=== PATIENT | female | born 1975 | race Caucasian/White ===

== ENCOUNTER 2024-03-07 06:12 | Inpatient (IN) | payer OTHER, BC, SELFPAY ==
[2024-03-01 13:45] VITALS: BMI 23.6
[2024-03-07] VITALS (14 sets, daily range): BP systolic 89–126; BP diastolic 52–80; PULSE 73–99; RESP 10–22; TEMP 36.3–37.1; O2SAT 91–100; BMI 23.6
--- NOTE | 2024-03-07 | DI.RAD.S_ITS ---
PROCEDURE: XR LUMBAR SPINE 2-3V INDICATIONS: TLIF L5-S1 TECHNIQUE: 2 views of the lumbar spine were acquired. COMPARISON: [facility] Outside Film, MR, MR LUMBAR SPINE WITHOUT CONTRAST, 06/19/2023, 15:57. [facility], CR, XR LUMBAR SPINE 2 OR 3 VIEWS, 05/30/2023, 10:49. FINDINGS: Intraoperative images demonstrating fixation at L5-S1 with intervertebral spacer. Hardware is intact without hardware fracture or periprosthetic lucency to suggest loosening. Alignment is stable. Moderate to severe foraminal narrowing is present at L5-S1. IMPRESSION: Posterior fusion L5-S1. Dictated by: Brianne Roland M.D. on 03/07/2024 at 19:22 Approved by: Brianne Roland M.D. on 03/07/2024 at 19:22
[2024-03-07] MEDS: LACTATED RINGERS 1,000 ML 42 ML IV ×2 (07:08→09:57)
[2024-03-07] MEDS: ACETAMINOPHEN 325 MG TABLET 975 MG PO (07:09)
--- NOTE | 2024-03-07 07:38 | PM.PREOP ---
Pre-operative Note Interval Note History & Physical reviewed/Exam performed by Physician: Yes Changes to H&P: No
[2024-03-07] MEDS: CEFAZOLIN 2 GM/100 ML PREMIX 100 ML IV ×3 (07:57→23:55)
--- NOTE | 2024-03-07 08:14 | SUR.OPER ---
Prone on spine table, head in foam head support, padded chest and pelvic supports, gel pad at knees, lower legs supported by pillows; nipples, genitalia and toes free of pressure, arms secured on foam padded arm boards at <90 degrees abduction. Tape over blanket at thigh secured to table.
[2024-03-07] MEDS: BUPIVACAINE 0.25% (PF) 30 ML, EPINEPHrine 0.15 MG INJ (08:57)
[2024-03-07] MEDS: BUPIVACAINE LIPOSOME 266 MG/20 ML VIAL INJ (09:28)
--- NOTE | 2024-03-07 10:12 | P.OP_ITS ---
Operative Date/Time/Diagnoses Date of procedure: 03/07/24 Time of procedure: 07:40 Pre-op diagnosis: 1. L5-S1 spondylolisthesis 2. L5-S1 bilateral foramen stenosis with radiculopathy Post-op diagnosis: same Procedure & Clinicians Procedure: 1. L5-S1 Postero-lateral and posterior interbody fusion 2. L5-S1 interbody cage placement. 3. L5-S1 decompressive laminectomy with bilateral facetecomies 4. L5-S1 Posterior non-segmental instrumentation 5. [place] of bone marrow from iliac crest 6. Utilization of microsurgical technique and operating microscope Same procedure as scheduled: Yes Indications: Patient has been having chronic back pain and worsening lumbar radiculopathy. Patient was found to have L5-S1 severe degenerative disc disease with bilateral foraminal stenosis and retrolisthesis correlating with her symptoms. Patient failed multiple conservative management with worsening pain weakness and numbness in her lower extremity. Patient has been having difficulty performing activity of daily living. After discussing risks benefits of treatment options, patient elected proceed with surgery. Surgeon: Stephy Lopez Office Technology Instructor: Diane Hickey Click Yes if Unassisted: No Anesthesia Type: General Operative Notes Closure Type: primary Specimen(s): none sent Prosthetic devices, grafts, tissues, transplants, or devices: Globus revolve screws, Rise cage Estimated Blood Loss (mL): 50 Blood products transfused: none Procedure in detail: Patient was seen in the preoperative area. Risks and benefits of the surgery was discussed with the patient. Informed consent was obtained from the patient and placed in the chart. Surgical site was marked. Patient was taken to the operative room. General anesthesia was administered. Prophylactic antibiotic was given to the patient less than 30 min before the incision was made. Patient was placed into a prone position on the [place] table. Patient's back was then prepped and draped in the sterile fashion. Time-out was performed at this time. Using AP and lateral C-arm imaging the interval between L5-S1 was identified and marked on patient's back. A 2 inch incision 2 in from midline was made on the right side first. The fascia was incised in line with skin incision. Globus MARS retractors was placed inside the incision and docked onto the L5 lamina. Using microsurgical technique and operating microscope, a L5 laminectomy and L5- S1 facetectomy was performed using a Kerr[place] rongeur. Patient was found have severe lateral recess and neural foramen stenosis which was fully decompressed after the laminectomy facetectomy. The laminectomy and facetectomy was performed in order to decompress patient's cauda equina as well as the nerve roots exiting at the L5-S1 level. More than 75% of the facets were removed during the process of decompression rendering L5-S1 level grossly unstable and required a fusion procedure at the same time. The disc space at L5-S1 was identified. And a total diskectomy was performed at L5-S1 level. The endplates were decorticated using a rasp and shaver. The total diskectomy and decortication was performed at L5-S1 level in order to to accomplish a L5-S1 fusion. The local bone from the laminectomy and facetectomy was saved for local bone grafting. After the total diskectomy and decortication was completed, Viacel bone graft material was combined with local bone that was harvested earlier. At this time, a separate skin is incision was made over the iliac crest. A Jamshidi needle was inserted into the iliac crest through a separate skin incision on the left. 5 cc of bone marrow aspiration was obtained through the separate skin incision using a Jamshidi needle from the iliac crest. The bone marrow aspiration was combined with local bone and the Viacel bone grafting material. The bone grafting material was placed into the L5-S1 interbody space along with a expandable cage. The cage was expanded to its maximum height using the torque limiting screwdriver. At this time a mirror image incision was made on the left side. The fascia was incised in line with the skin incision. Globus MARS retractor was inserted and docked onto the L5-S1 posterolateral gutter. Using the power drill, posterior- lateral decortication was performed at L5-S1 level until bleeding cortical bone was identified. The remaining bone grafting material was placed into the L5-S1 posterior lateral gutter he order to accomplish posterolateral fusion at the L5- S1 level. Using the double C-arm technique, pedicle screws were placed into the L5-S1 pedicles bilaterally. This was done by placing the Jamshidi needle into the pedicles, then placing the guidewires over the Jamshidi needle, and finally placing the cannulated screws over the guidewires bilaterally. After the pedicle screws were placed, 2 titanium rods was locked into the heads of the pedicle screws using locking caps and torque limiting screwdriver. After all the hardware was placed, and confirmed with AP and lateral C-arm imaging, the wound was then irrigated with sterile normal saline and packed with Ray-Adrian gauze for 3 min to accomplish hemostasis. After the gauze was removed the deep fascia was closed with #1 Vicryl suture. The subcutaneous layer was closed with 2-0 Vicryl. The skin was closed with skin tita. Patient tolerated the procedure well. There were no complications. The Operation could not have been safely performed without compromising the technical result or length of the procedure, without the assistance of a skilled surgical garment assembly supervisor. The surgical garment assembly supervisor was medically necessary for proper positioning, retraction and manipulation of instruments, proper exposure, surgical preparation, and manipulation of tissue. Neuro monitoring was utilized throughout the entire case. Patient has signal was stable throughout entire procedure. Complications: none Post-operative Condition: stable Disposition: PACU Plan for aftercare: Admit to inpatient hospital
[2024-03-07] MEDS: fentaNYL 100 MCG/2 ML INJ IV ×2 (10:28→10:40)
[2024-03-07] MEDS: HYDROMORPHONE 1 MG INJ IV ×4 (10:32→11:07)
[2024-03-07] MEDS: LORazepam 2 MG/ML INJ 0.25 MG IV ×2 (10:34→11:21)
[2024-03-07] MEDS: ONDANSETRON 4 MG/2 ML INJ IV (10:46)
[2024-03-07] MEDS: OXYCODONE IR 5 MG TABLET PO ×2 (11:04→11:35)
[2024-03-07] MEDS: hydrOXYzine 50 MG/ML INJ 25 MG IM (11:07)
[2024-03-07] MEDS: MEPERIDINE 50 MG/ML INJ 12.5 MG IV (11:32)
--- NOTE | 2024-03-07 12:06 | SUR.PHASEI ---
Handoff report given to QUENTIN Cantu. Pt transferred by QUENTIN Roach to 205. Pt in bed, side rails raised, on 2L NC. Taking sips of juice prior to transfer. Belongings sent with patient.
[2024-03-07] MEDS: LACTATED RINGERS 1,000 ML 125 ML IV ×3 (12:15→21:47)
--- NOTE | 2024-03-07 13:16 | PC.NURSE ---
Patient back from surgery around 12:10pm. She is alert and oriented x4. Patient had a lot of pain medications, and anxiety meds down in the pacu. Her VSS and rr are 12. She knows not to bend, twist, and lift. Her and friend are in the room visiting and she has LR at 125cc/hr infusing. Dressing to back is cdi, she is on 2L of oxygen and sats are 100%. We will try her on room air a bit later as she is groggy. Patient also has hx of bipolar and anxiety. She seems to be resting comfortably at this time. Will check on patient again soon.
--- NOTE | 2024-03-07 14:01 | PT-IP ANOTE ---
OT speaks with nsg who reports that pt is highly medicated and sleeping soundly and not appropriate for therapies at this time.
--- NOTE | 2024-03-07 14:02 | OT.IPNOTE ---
Chart reviewed and nursing consulted. Pt is medicated and sleeping soundly. Will hold at this time and continue to follow.
[2024-03-07] MEDS: HYDROMORPHONE 0.5 MG INJ IV ×4 (14:44→23:55)
[2024-03-07] MEDS: ACETAMINOPHEN 325 MG TABLET 650 MG PO (14:44)
[2024-03-07] MEDS: OXYCODONE IR 10 MG TABLET PO ×2 (16:12→21:47)
[2024-03-07] MEDS: TRAZODONE 50 MG TABLET 100 MG PO (20:19)
[2024-03-07] MEDS: DOCUSATE 100 MG CAPSULE PO (20:19)
[2024-03-07] MEDS: SENNOSIDES 8.6 MG TABLET 17.2 MG PO (20:20)
[2024-03-07] MEDS: ALPRAZolam 0.25 MG TABLET PO (20:20)
[2024-03-08 00:05] VITALS: BP 116/63; PULSE 97; RESP 18; TEMP 36.7; O2SAT 99
[2024-03-08] MEDS: HYDROMORPHONE 0.5 MG INJ IV ×3 (01:42→06:25)
[2024-03-08] MEDS: OXYCODONE IR 10 MG TABLET PO ×7 (02:05→23:51)
[2024-03-08 05:19] VITALS: BP 105/67; PULSE 97; RESP 18; TEMP 36.6; O2SAT 99
[2024-03-08] MEDS: BUTALB/APAP/CAFFEINE 50/325/40 TABLET 1 EACH PO (06:19)
[2024-03-08] MEDS: PANTOPRAZOLE DR 20 MG TABLET PO (06:29)
--- NOTE | 2024-03-08 07:44 | P.DS_ITS ---
History of Present Illness History of Present Illness Date Patient Seen: 03/08/24 Time Patient Seen: 07:44 Chief complaint: Back pain Narrative: Pain has been moderate to severe. Patient has been out of bed. Patient has her home to assist her. Otherwise without complaints. Discharge Providers Provider Date of admission: 03/07/24 06:12 Discharge Date: 03/08/24 Primary care physician: Alisha Colon MD Consults: 03/07/24 12:10 Consult to Occupational Therapy Evaluate & Treat Comment: Physician Instructions: Evaluate and treat Consult to Physical Therapy Evaluate & Treat Comment: Physician Instructions: Evaluate and Treat Discharge provider: Eliecer Mayberry PA-C Summary Hospital Course Discharge Diagnosis: 1. L5-S1 spondylolisthesis 2. L5-S1 bilateral foramen stenosis with radiculopathy Hospital Course: 1. L5-S1 Postero-lateral and posterior interbody fusion 2. L5-S1 interbody cage placement. 3. L5-S1 decompressive laminectomy with bilateral facetecomies 4. L5-S1 Posterior non-segmental instrumentation 5. [place] of bone marrow from iliac crest 6. Utilization of microsurgical technique and operating microscope Same procedure as scheduled: Yes Indications: Patient has been having chronic back pain and worsening lumbar radiculopathy. Patient was found to have L5-S1 severe degenerative disc disease with bilateral foraminal stenosis and retrolisthesis correlating with her symptoms. Patient failed multiple conservative management with worsening pain weakness and numbness in her lower extremity. Patient has been having difficulty performing activity of daily living. After discussing risks benefits of treatment options, patient elected proceed with surgery. Surgeon: Stephy Lopez Experimental Welder: Diane Hickey Click Yes if Unassisted: No Anesthesia Type: General Operative Notes Closure Type: primary Specimen(s): none sent Prosthetic devices, grafts, tissues, transplants, or devices: Globus revolve screws, Rise cage Estimated Blood Loss (mL): 50 Blood products transfused: none Patient admitted to the hospital for the above-mentioned procedure. Patient consented to the same. Patient underwent L5-S1 fusion March 07, 2024. Patient back in her room recovering well as a stable condition. Patient will mobilize with physical therapy this morning. She has been out of bed walking in her room. Multimodal pain management. Limit bending, twisting, lifting. Follow up outpatient Orthopedics in 2 weeks. Discharge home today after physical therapy if safe for home environment. Exam Vital Signs (past 8 hours): - 03/08/24 00:05 03/08/24 05:19 Temperature 98.1 F 97.8 F Pulse Rate 97 H 97 H Respiratory Rate 18 18 Blood Pressure 116/63 105/67 Pulse Oximetry 99 99 Oxygen Flow Rate 0 0 Oxygen Delivery Method Nasal Cannula Oxygen Flow Rate 0 Narrative Exam Narrative: 48-year-old female sitting at edge of bed in no apparent distress. Dressing is clean, dry and intact. Neurovascular status is intact bilateral lower extremities. Const General: cooperative and comfortable Nutritional Appearance: average body habitus Orientation: alert Resp Effort & Inspection: normal respiratory effort and able to speak in complete sentences PFSH Medical History History of COVID-19 (01/2022) Anxiety GERD (gastroesophageal reflux disease) HLD (hyperlipidemia) Hx of migraines Spondylolisthesis Foraminal stenosis of lumbosacral region Surgical History History of colonoscopy [place] teeth removed Hx of dilation and curettage (1995) Social History household members: spouse Smoking Status: Former smoker alcohol intake: current Discharge Assessment & Plan Assessment and Plan Assessment: Progressing as expected Plan of Treatment: Multimodal pain management Limit bending, twisting, lifting Follow up outpatient Orthopedics in 2 weeks Discharge home today after physical therapy if safe for home environment Discharge Plan Discharge Plan Patient Disposition: Home Discharge orders & Medications Prescriptions: New acetaminophen 325 mg Tablet 650 mg PO Q6H PRN (Reason: Fever/Mild Pain (1-3)) Qty: 60 0RF docusate sodium 100 mg Capsule 100 mg PO BID Qty: 10 0RF oxycodone 5 mg Tablet 5 mg PO Q3H PRN (Reason: Pain, Moderate (4-6)) Qty: 40 0RF Continued trazodone 50 mg Tablet 150 - 200 mg PO BEDTIME alprazolam 0.25 mg Tablet 0.25 mg PO BID PRN (Reason: Anxiety) baclofen 10 mg Tablet 10 mg PO Q8H PRN (Reason: Muscle Spasm) omeprazole 20 mg Capsule,Delayed Release(Dr/Ec) 20 mg PO DAILY ondansetron 4 mg Tablet,Disintegrating 4 mg PO Q8H PRN (Reason: Nausea) Femring 0.1 mg/24 hr Ring 1 vag ring VAGINAL [id number] rosuvastatin 10 mg Tablet 10 mg PO DAILY [id number] [Fioricet] 50-300-40 mg Capsule 1 - 2 cap PO DAILY PRN (Reason: Migraine Headache) Nurtec ODT 75 mg Tablet,Disintegrating 75 mg PO Q OTHER DAY PRN (Reason: Migraine Headache) Ozempic 1 mg/dose (4 mg/3 mL) Pen Injector 1 mg SUBCUT QWEEK Patient Comments: Every Thursday alprazolam 0.25 mg tablet 0.25 mg PO BID Follow up/Referrals: Stephy Lopez MD [Physician] - 03/24/24 2:00 pm (Follow up w/ Diane Hickey PA-C, at [facility] office in [place]. This is a change from your original appointment) Alisha Colon MD [Primary Care Provider] - Diet/Activity/Treatments Diet: Diet as Tolerated Activity: No deep bending or twisting at the waist. No lifting more than 10 pounds. Skin/Wound/Dressing Care Report to your healthcare provider any signs of infection, such as:: chills, fever, night sweats, unusual drainage and unusual redness Dressing: May shower. Keep dressing as dry as possible. If dressing becomes wet or dirty, remove and replace with clean, dry gauze. No bathing or otherwise soaking incisions. Do not apply any creams, lotions, or ointments to incisions. Visit Report/Discharge Packet Instructions: DI for Prescription Opioid Use, DI for Transforaminal Lumbar Interbody Fusion Stand Alone Forms: Congestive Heart Failure, Patient Portal/API, Stroke Signs & Symptoms, Surgery Discharge Discharge Data Primary Care Provider: Alisha Colon Quality VTE Deep Vein Thrombosis/Pulmonary Embolism Present on Admission: No
[2024-03-08 08:00] VITALS: BP 111/72; PULSE 90; RESP 16; TEMP 36.2; O2SAT 99
[2024-03-08] MEDS: ATORVASTATIN 20 MG TABLET PO (08:15)
[2024-03-08] MEDS: ALPRAZolam 0.25 MG TABLET PO ×2 (08:16→20:05)
[2024-03-08] MEDS: DOCUSATE 100 MG CAPSULE PO ×2 (08:16→20:05)
--- NOTE | 2024-03-08 08:22 | CM.DANOTE ---
Initial DCP Assessment Visit Note Reviewed EMR and team rounds for status updates. Met with pt and her friend at bedside to introduce self and role. Pt was found to be sitting upright in bed, eating breakfast, expressing that her pain is well managed and has improved since yesterday. Pt lives independently in her own home with her spouse in [place]. Her spouse will return later this morning to transport her home after she has worked with therapies. Payor: [facility] Attending: Dr. Lopez Pt is a 48 year-old F post-op day 1 from her lumbar surgery. She has a hx of worsening tailbone/lumbar pain that radiates down her legs, numbness/tingling, and weakness. She has tried numerous conservative therapies including physical therapy, chiropractic, ice, heat, baclofen, accupuncture, and cyclobenzaprine without lasting benefit. Pt states that she does have a walker at home, has a plan for OP PT, and Ortho f/u visit. DCP will continue to follow and assist with any further assistance/resource needs prior to d/c. She denies any needs at this time. Discharge Planning/Care Management CM Discharge Assessment Start: 03/08/24 08:17 Freq: Status: Active Protocol: Document 03/08/24 08:17 DPL (Rec: 03/08/24 08:22 DPL [id number]) Discharge Planning Assessment Assigned Residential Lawn Specialist JOE Mcneal Advance Directives? No History Provided By Patient,Medical Record Has Patient been admitted in last 30 No days? Prior Living Arrangements House Household Members spouse Type of transporation used prior to Drives own vehicle admit Independent with ADL's Yes Is patient alert and oriented? Yes Caregiver for Another Yes: family DME Already Rented / Owned FWW / Walker Patient/Family Preference OP PT Therapy Barriers to Discharge No Discharge Plan Home Community Services Physical Therapy Transportation Arrangement Spouse Referrals Initiated None needed Whiteboard Updated in Patient Room with Yes name and ext. # of Residential Lawn Specialist Review Status In Process Please Provide Date Initial DC 03/08/24 Assessment Was Performed Pre-Anesthesia Assessment Start: 03/01/24 13:45 Freq: Status: Complete Protocol: Document 03/01/24 13:45 CAB (Rec: 03/01/24 14:34 CAB [id number]) Pre-Anesthesia Assessment Patient Information Reviewed Via Phone Assessment Assessment Completed With Patient Diagnostic Results BMP/CMP,CBC Comment Outside labs scanned-EKG done per pt, not available at time of assessment Primary Care Provider Alisha Colon Seen Specialist in Last 12 Months Yes Specialist Seen Orthopedist,Other Comment Neurology Primary Language Trin[place] Electronic Field Service Engineer Required No Height 167.64 cm Weight 66.224 kg Body Mass Index (BMI) 23.6 Hearing Ability Normal Visual Assist Glasses Dentition Type Teeth, Natural Present,Teeth, Missing Barriers to Learning None Hx Anesthesia Reactions Yes: I felt everything with my colonoscopy Hx Family Anesthesia Reaction No Hx Malignant Hyperthermia No Hx Blood Transfusions No Anesthesia Review Requested No Inspector Canned Food Reconditioning No alcohol intake current alcohol intake frequency holidays/special occasions only Smoking Status Former smoker how long ago did patient quit smoking Jun 2023 Substance Use Type does not use Musculoskeletal Symptoms Abnormal Gait,Back Pain, Radiating Pain into Limb History of Falling (Recent or History of No ) Patient is completely paralyzed or No completely immobile Mental Status Oriented to own ability Is patient on oxygen? No Does patient have WIN/SOB No Hx Sleep Apnea No Currently Taking a Beta Tory No Can You Climb a Flight of Stairs Without Yes SOB Hx Chest Pain No Hx SOB No Hx Syncope or Dizziness Yes: Dizziness, pt feels related to ears Anti-Coagulant Therapy No Has a Trust Administrative Assistant No Cardiac Testing No Hx Pacemaker/ICD No Pacemaker Rep Required? No Cardiac Clearance Received No Diet Type At Home Regular Dysphagia No Gastrointestinal Symptoms Nausea Bladder Pattern Incontinent, Stress Urinary Catheter Present No Hx Urinary Self Catheterization No Diabetes No: Has not be diagnosed w/DM or pre-diabetes Comment Pt states A1c high(does not remember #), put on semaglutide Patient No Lactating No Hx Drug Resistant Organism No Presence of External or Internal Medical No Devices Marital Status Lives With spouse Current Living Arrangements House Number of Floors (Floors) One Floor Support System Spouse Does the Patient Have Assistance After Yes Surgery Patient Discharge Plan Description Return Home Comment Pt advised overnight length of stay per surgeon Feels Safe in Current Environment Yes Been Physically Hurt or Threatened By a No Person in Current Environment Do you have thoughts of harming yourself None or others? Are you currently considering suicide? No Do you have a plan to hurt yourself or No Plan others? Do You Have Any Spiritual Beliefs That No May Affect Your HC Choices? Do You Have Any Cultural Practices That No May Affect Your HC Choices? Comment [place] Who Can We Speak to About Patient's Care Family, friends Identifying Code for Release of Patient Declines to issue Information Health Care Proxy/Next of Kin Zack () Health Care Proxy Emergency Contact Name Germania (daughter) Emergency Contact Advance Directives? No Power of Doughnut Glazier No PAC Instructions Assistance for 24 hours post- op,Durable medical equipment, Medications to take/avoid, Nasal antibiotic,No ETOH/ petroleum product on skin DOS, NPO,Post-op transportation,Pre -surgical wash,Sensory aids, Sturdy shoes/comfortable clothes,Do not bring valuables and remove jewelry
--- NOTE | 2024-03-08 10:00 | PT.IIE ---
Current Diagnoses Spondylolisthesis, lumbosacral region (03/07/24) Spinal stenosis, lumbosacral region (03/07/24) Surgery Performed Operation Date: 03/07/24 07:45 Actual Procedures p L5-S1 TLIF - Stephy Lopez MD Surgical History (Last Reviewed 03/08/24 @ 10:54 by Eliecer Mayberry PA-C) History of colonoscopy Hx of dilation and curettage (1995) [place] teeth removed Medical History (Last Reviewed 03/08/24 @ 10:54 by Eliecer Mayberry PA-C) Anxiety Foraminal stenosis of lumbosacral region GERD (gastroesophageal reflux disease) History of COVID-19 (01/2022) HLD (hyperlipidemia) Hx of migraines Spondylolisthesis Physical Therapy Inpatient Evaluation/Re-Eval M1 PT/OT-IP Prior Functional Status Start: 03/07/24 14:02 Freq: NEEDED Status: Active Protocol: Document 03/08/24 10:00 AB (Rec: 03/08/24 12:46 AB [id number]) Medical Review Prior Functional Status Medical History Reviewed Yes Communication able to make needs known Mobility and Gait pt stated that she was independent with all mobilities and ambulation without AD Social History Household Members spouse Living Arrangements House Number of Floors (Floors) One Floor Number of Stairs To Enter/Railing? ramp to enter Home Environment Standard Height Toilet,Walk in Shower Home Equipment Front Wheel Walker,Raised Toilet Seat w/Armrests,Shower Seat with Backrest,Hand Held Shower Additional Social History Comment pt stated that her mother- in- law will be assisting her at home M2 PT-IP Current Condition Start: 03/07/24 14:02 Freq: NEEDED Status: Active Protocol: Document 03/08/24 10:00 AB (Rec: 03/08/24 12:46 AB [id number]) Physical Therapy Current Condition Current Condition Evaluation Date 03/08/24 Treatment Diagnosis s/p L4-S1 TLIF; difficulty in walking Onset Date 03/07/24 M3 PT-IP Subjective Start: 03/07/24 14:02 Freq: NEEDED Status: Active Protocol: Document 03/08/24 10:00 AB (Rec: 03/08/24 12:46 AB [id number]) Subjective Physical Therapy Visit Type Type Initial Evaluation Visit Start Time 10:00 Visit Stop Time 10:30 Number of SEAMER Visits 0 Physical Therapy Visit Comments Patient Comments agreeable to do PT Therapy Pain Assessment Pain When Pain Assessed At Rest Pain Present Pain Present Pain Reported Location back Intensity 7 Scale Used increases with mobility Pain Behaviors Crying,Guarding,Wincing Pain Management Techniques Apply Cold,Distraction, Modification of Treatment,Re- positioning,Timing of Activity with Medications M4 PT-IP Mobility and Gait Start: 03/07/24 14:02 Freq: NEEDED Status: Active Protocol: Document 03/08/24 10:00 AB (Rec: 03/08/24 12:46 AB [id number]) PT-Bed Mobility Assessment Rolling Type of Rolling Log Rolling Level of Assist Minimal Assistance Supine to Sit Supine to Sit Moderate Assistance Sit to Supine Sit to Supine Minimal Assistance PT-Transfer Assessment Sit to and From Stand Sit to and from Stand Moderate Assistance,1 Person Assistance,Use of Upper Extremities Equipment Transfer Assistive Device Gait Belt,Front Wheeled Walker Orthotic/Prosthetic Devices or Brace: No Transfers Transfer Destination Chair Transfer Technique ambulated Transfer Ability Level of Assist Moderate Assistance,1 Person Assistance,Use of Upper Extremities Comments Mobility Comments pt supine in bed and agreeable to do PT. pt's friend in room with pt. obtained PLOF and home set up. post-op folder provided and reviewed contents . educated pt regarding back precautions and log roll bed mobility. BP in supine: 111/ 68. pt completed log roll supine to sit mod A and max cues. c/ o increase back pain. pt is crying due to pain. pt rested seated. agreed to continue PT. completed sit to stand mod A and cues and ambulated using FWW ~15 ft mod A and cues. pt sat on the chair. agreed to sit on the chair. positioned pt on the chair. call light and table placed within reach. caregiver training set up this afternoon at ~ 2pm Gait Assessment Gait Gait Assistance Required: Moderate Assistance Distance (Feet) 15 Able to Maintain Weight Bearing Status Yes During Gait Assistive Devices Assistive Device Gait Belt,Front Wheeled Walker Orthotic/Prosthetic Devices or Brace: No Gait Deviations General Gait Pattern Decreased Stride Length, Decreased Feet Clearance Factors Limiting Gait Function Factors Limiting Gait Function Decreased Activity Tolerance, Decreased Strength,Limited Range of Motion,Pain,Poor Balance,Poor Safety Awareness PT-Balance Assessment Sitting Balance and Reactions Static Sitting Balance Ability Normal Dynamic Sitting Balance Ability Good Standing Balance and Reactions Static Standing Balance Ability Fair Dynamic Standing Balance Ability Fair Device Used FWW M5 PT-IP Objective Assessments Start: 03/07/24 14:02 Freq: NEEDED Status: Active Protocol: Document 03/08/24 10:00 AB (Rec: 03/08/24 12:46 AB [id number]) Orientation Orientation/Cognition Level of Alertness Alert Orientation Name,Place,Situation Language Function Ability No Deficits Noted Safety Awareness Understands Safety Issues Memory Description No Deficits Noted Gross Range of Motion Lower Extremity ROM Assessment Within Functional Limits Strength Lower Extremity Strength Hip 4-/5 Knee 4-/5 Coordination Assessment Gross Coordination Gross Coordination WNL Sensation Assessment Sensation Gross Sensation WNL Muscle Tone Muscle Tone WNL Yes M6 PT-IP Treatment Start: 03/07/24 14:02 Freq: NEEDED Status: Active Protocol: Document 03/08/24 10:00 AB (Rec: 03/08/24 12:46 AB [id number]) Physical Therapy Treatment Education Education Provided Precautions,Weight Bearing Status,Post-Op Packet,Safety M7 PT-IP Assessment and Plan Start: 03/07/24 14:02 Freq: NEEDED Status: Active Protocol: Document 03/08/24 10:00 AB (Rec: 03/08/24 12:46 AB [id number]) PT Summary Assessment and Plan Potential Rehabilitation Potential Fair Status of Condition at Evaluation Evolving Summary Impairments Pain,ROM,Strength,Balance, Coordination,Sensation,Tone, Cognition,Bed Mobility, Transfers,Gait,Activity Tolerance Assessment Summary pt is a 48 y/o F s/p L5S1 TLIF POD 1. pt requiring mod A for mobility at this time using FWW. pt c/o increase back pain with mobility affecting functional independence at this time. caregiver training set up at ~ 2pm this afternoon. will continue to assess progress. Goals Bed Mobility Goal Independent Transfer Goal Independent,Front Wheeled Walker Gait Goal Independent,Front Wheel Walker Gait Distance 200 Days to Meet Goals 10 Frequency of Treatment Frequency Of Treatment Twice a Day Treatment Plan Physical Therapy Treatment Plan Bed Mobility Training,Transfer Training,Gait Training, Therapeutic Exercise,Balance Retraining,Post Op Education, Discharge Planning,Hot or Cold Pack,Neuromuscular Re-ed, Coordination Retraining,Manual Therapy Precautions Lumbar Precautions Log Roll,No Twisting,Limit Bending,Lifting Restriction of 10 lbs,Gait Belt above Incisional Area Recommendations To Nursing Amount of Assist Needed 1 Person Assist Discharge Recommendations PT Discharge Recommendations Home with Assistance,Home Health Transportation Needs at Discharge Private Vehicle
--- NOTE | 2024-03-08 11:20 | OT.IP.EVAL ---
Current Diagnoses Spondylolisthesis, lumbosacral region (03/07/24) Spinal stenosis, lumbosacral region (03/07/24) Surgery Performed Operation Date: 03/07/24 07:45 Actual Procedures p L5-S1 TLIF - Stephy Lopez MD Past Medical History (Last Reviewed 03/08/24 @ 10:54 by Eliecer Mayberry PA-C) Anxiety Foraminal stenosis of lumbosacral region GERD (gastroesophageal reflux disease) History of COVID-19 (01/2022) HLD (hyperlipidemia) Hx of migraines Spondylolisthesis Surgical History (Last Reviewed 03/08/24 @ 10:54 by Eliecer Mayberry PA-C) History of colonoscopy Hx of dilation and curettage (1995) [place] teeth removed Occupational Therapy Inpatient Evaluation/Re-Eval M1 PT/OT-IP Prior Functional Status Start: 03/07/24 14:02 Freq: NEEDED Status: Active Protocol: Document 03/08/24 13:14 [facility] (Rec: 03/08/24 13:31 [facility] [id number]) Medical Review Prior Functional Status Medical History Reviewed Yes Communication able to make needs known Mobility and Gait pt stated that she was independent with all mobilities and ambulation without AD Activities of Daily Living and IADL's Independent Social History Household Members spouse Living Arrangements House Number of Floors (Floors) One Floor Number of Stairs To Enter/Railing? ramp to enter Home Environment Standard Height Toilet,Walk in Shower Home Equipment Front Wheel Walker,Raised Toilet Seat w/Armrests,Shower Seat with Backrest,Hand Held Shower Additional Social History Comment pt stated that her mother- in- law will be assisting her at home M2 OT-IP Current Condition Start: 03/08/24 13:14 Freq: Status: Active Protocol: Document 03/08/24 13:14 [facility] (Rec: 03/08/24 13:31 [facility] [id number]) Occupational Therapy Current Condition Current Condition Evaluation Date 03/08/24 Treatment Diagnosis S/P L5-S1 TLIF Diagnosis Onset Date 03/07/24 Post Operative Precautions Lumbar Precautions Log Roll,No Twisting,Limit Bending,Lifting Restriction of 10 lbs,Gait Belt above Incisional Area M3 OT- IP Subjective and Pain Start: 03/08/24 13:14 Freq: Status: Active Protocol: Document 03/08/24 13:14 [facility] (Rec: 03/08/24 13:31 [facility] [id number]) OT- Subjective Occupational Therapy Visit Type Type Initial Evaluation Visit Start Time 10:55 Visit Stop Time 11:20 Occupational Therapy Visit Comments Patient Comments Pt agreed to get up to use the bathroom and do caregiver training with her . Patient/Caregiver Goals To go home. OT Pain Assessment Pain When Pain Assessed At Rest Pain Present Pain Present Pain Reported Location back Intensity 8 Scale Used Numeric (0 - 10) M4 OT- IP ADL's Start: 03/08/24 13:14 Freq: Status: Active Protocol: Document 03/08/24 13:14 [facility] (Rec: 03/08/24 13:31 [facility] [id number]) OT [id number] General Evaluation Self-Feeding Ability Independent OT ADL-Grooming General Evaluation Grooming Ability Independent Comments OT Grooming Comments Able to do while standing with FWW. OT ADL-Oral Care General Eval Oral Care Ability Independent Comments Oral Care Comments VC tp hinge at her hips or just spit into a cup to best follow her back precautions. OT ADL-Dressing Comments OT Dressing Comments Pt's to assist. Pt has a political geographer and talked about other LB dressing equipment. OT ADL-Toileting General Evaluation Toileting Ability Standby Assistance Comments OT Toileting Comments Pt has a toilet paper aid at home to assist her. Pt out the FWW over the toilet and then turning around to us the toilet. Suggested best to use the FWW at all times and use of RTS with handles or get a BSC for safety to decrease risk of twisting. Pt states agrees will wear pads at night. OT ADL-Bathing Comments OT Bathing Comments Educated pt's or covering the dressing to prevent it from getting wet while showering. M5 OT- IP IADL's Start: 03/08/24 13:14 Freq: Status: Active Protocol: Document 03/08/24 13:14 [facility] (Rec: 03/08/24 13:31 [facility] [id number]) OT-Instrumental Activities of Daily Living Home Safety Awareness Awareness of Need for Assistance at Home Good Awareness Ability to Problem Solve Emergency Able to Problem Solve Situations Home Safety Comments Pt's plans on staying home to assist her. M6 OT- IP Functional Cognition Start: 03/08/24 13:14 Freq: Status: Active Protocol: Document 03/08/24 13:14 [facility] (Rec: 03/08/24 13:31 [facility] [id number]) Cognitive Factors Limiting Selfcare Function Cognitive Ability Level of Alertness Alert Patient Orientation Name,Age,Birthday,Month,Date, Year,Day of Week,Place, Situation Attention Span Ability Capable of Focused Attention, Capable of Sustained Attention Ability to Follow Commands Able to Follow One Step Commands Safety Awareness Decreased Ability to Apply Precautions Cognitive Comments Cognitive Assessment Comments Pt very tearful due to her pain and nursing notified. Pt able to follow commands for ADl and mobility needs and needing reminders to incorporate her back precautions. OT- Vision and Hearing OT- Hearing Assessment OT- Hearing Assessment WFL OT- Vision Assessment Vision Assessment Comments Pt wears glasses. M7 OT- IP Mobility and Balance Start: 03/08/24 13:14 Freq: Status: Active Protocol: Document 03/08/24 13:14 [facility] (Rec: 03/08/24 13:31 [facility] [id number]) OT- Bed Mobility Assessment Supine to Sit Supine to Sit Assist Contact Guard Assistance, Bedrails Sit to Supine Sit to Supine Assist Contact Guard Assistance, Bedrails OT-Transfer Assessment Sit to and From Stand Sit to and from Stand Minimal Assistance Transfers Transfer Ability Standby Assistance,Contact Guard Assistance Technique Transfer Destination Bed,Chair,Toilet Devices Transfer Assistive Devices Gait Belt,Front Wheeled Walker Comments Mobility Comments VC to push up from the recliner versus FWW. Pt needing CHUNG to stand from lower surfaces. Pt's able to assist pt to and from the bathroom. Showed pt and use of fww on the side to use as a grab bar so pt better able to follow her back precautions while trying to get back to bed. Pt also may want to get a bed rail. OT- Balance Assessment Sitting Balance and Reactions Static Sitting Balance Ability Good Dynamic Sitting Balance Ability Good Standing Balance and Reactions Static Standing Balance Ability Fair Dynamic Standing Balance Ability Fair M8 OT- IP Objective Assessments Start: 03/08/24 13:14 Freq: Status: Active Protocol: Document 03/08/24 13:14 [facility] (Rec: 03/08/24 13:31 [facility] [id number]) OT Gross Range of Motion Upper Extremity Range of Motion Assessment Within Functional Limits OT Strength Comments Strength Comments WFL for needs. M9 OT- IP Assessment and Plan Start: 03/08/24 13:14 Freq: Status: Active Protocol: Document 03/08/24 13:14 [facility] (Rec: 03/08/24 13:31 [facility] [id number]) OT Summary Assessment and Plan Potential Rehabilitation Potential Excellent Analytic Complexity at Evaluation Low Summary OT Impairments Pain,Strength,Balance, Functional Mobility,Dressing, Toileting,Bathing,Toilet Transfers,Shower Transfers Progress Towards Goals Progressing Toward Goals,Slow Progress due to Pain Assessment Summary Pt low complexity and main barriers is pain at this time. Otherwise pt has a supportive to be able to assist her at home when medically stable. Pt would benefit from a BSC and bedrail. Goals Self-Feeding Goal Independent Grooming Goal Independent Dressing Goal Minimal Assistance Toileting Goal Independent Bathing Goal Minimal Assistance Toilet Transfer Goal Independent Shower Transfer Goal Standby Assistance Days to Meet Goals 5 Frequency of Treatment Other frequency 5x/week Treatment Plan OT Treatment Plan ADL Training,Functional Mobility,Patient/Family Education,Discharge Planning Discharge Recommendations OT Discharge Recommendations Home with Assistance Home Equipment Needs BSC, bed rail Transportation Needs at Discharge Private Vehicle
[2024-03-08] MEDS: BACLOFEN 10 MG TABLET PO ×2 (11:21→20:05)
--- NOTE | 2024-03-08 11:37 | PC.NURSE ---
Addendum entered by Belinda iWlliamson R.N. 03/08/24 14:18: Patient is having a hard time with pain management, she is getting oxycodone every 3 hours and is tearful. She is working with physical therapy now and doing primary care nurse training. Will assess pain level and management when she is done. Original Note: Patient has a discharge order to go home today. She is having pain and anxiety. Given 10mg of po oxycodone this morning, and just given baclofen 10mg to help relax patients muscles. She is teary eyed and visiting with her . Will check on patient again soon to see how she is doing. She has a back dressing to lower back that is cdi, this will be changed prior to discharge.
--- NOTE | 2024-03-08 17:04 | PT-IP ANOTE ---
checked on pt and pt in room with spouse. pt refused PT and stated that she has 9/10 pain and does not think it is ok for her to move with high pain. agreed to see PT tomorrow and possible caregiver training with spouse coming in at ~ 9 am tomorrow. will f/u.
[2024-03-08 20:00] VITALS: BP 106/53; PULSE 98; RESP 18; TEMP 37; O2SAT 97
[2024-03-08] MEDS: SENNOSIDES 8.6 MG TABLET 17.2 MG PO (20:05)
[2024-03-08] MEDS: TRAZODONE 50 MG TABLET 100 MG PO (20:05)
[2024-03-08] MEDS: ACETAMINOPHEN 325 MG TABLET 650 MG PO (20:05)
[2024-03-09] MEDS: ACETAMINOPHEN 325 MG TABLET 650 MG PO ×2 (02:56→12:10)
[2024-03-09] MEDS: OXYCODONE IR 10 MG TABLET PO ×2 (02:57→05:51)
[2024-03-09] MEDS: PANTOPRAZOLE DR 20 MG TABLET PO (05:51)
[2024-03-09] MEDS: BACLOFEN 10 MG TABLET PO (05:51)
[2024-03-09 08:00] VITALS: BP 121/81; PULSE 95; RESP 16; TEMP 37.6; O2SAT 96
[2024-03-09] MEDS: ONDANSETRON 4 MG ODT SL (08:09)
[2024-03-09] MEDS: ALPRAZolam 0.25 MG TABLET PO (08:09)
[2024-03-09] MEDS: MAGNESIUM HYDROXIDE 30 ML UDC PO (08:09)
[2024-03-09] MEDS: BUTALB/APAP/CAFFEINE 50/325/40 TABLET 1 EACH PO (08:09)
[2024-03-09] MEDS: polyethylene glycoL 3350 17 GM POWD.PACK PO (08:09)
[2024-03-09] MEDS: ATORVASTATIN 20 MG TABLET PO (08:09)
[2024-03-09] MEDS: DOCUSATE 100 MG CAPSULE PO (08:09)
--- NOTE | 2024-03-09 08:19 | P.PN_ITS ---
Subjective Subjective Date Patient Seen: 03/09/24 Time Patient Seen: 08:19 Interval history: Pt sitting up in bed, about to eat breakfast. C/o poor pain control despite baclofen 10mg and oxycodone 10mg, also c/o nausea. IV out. Has done some work w/ PT but not much d/t pain. C/o sharp, shooting pain in left buttock that runs down left leg. Exam Vital Signs (past 8 hours): - 03/09/24 08:00 Temperature 99.7 F H Pulse Rate 95 H Respiratory Rate 16 Blood Pressure 121/81 Pulse Oximetry 96 Oxygen Delivery Method Nasal Cannula Oxygen Flow Rate 0 Narrative Exam Narrative: 5/5 strength in hip flexors, quadriceps, hamstrings, PF, DF, EHL bilaterally, though DF is subjectively weaker on the left. Sensation to light touch intact throughout BLE, calves soft and compressible. Low back dressing placed intraoperatively is CDI. [facility] Medical History History of COVID-19 (01/2022) Anxiety GERD (gastroesophageal reflux disease) HLD (hyperlipidemia) Hx of migraines Spondylolisthesis Foraminal stenosis of lumbosacral region Surgical History History of colonoscopy [place] teeth removed Hx of dilation and curettage (1995) Social History household members: spouse Smoking Status: Former smoker alcohol intake: current Assessment & Plan Post-op Assessment and plan (1) S/P lumbar fusion: Assessment and Plan narrative: Poor pain control s/p lumbar fusion. We discussed what to expect and how to better manage pain and control nausea. Recommended decreasing oxycodone to 5mg max q 3hrs, while increasing baclofen dose and frequency. Will also start oral steroid taper to help with leg pain. Pt agreeable to trying this. We will plan on keeping her today to do more work w/ PT and to see if this medication change helps with pain and nausea. I advised her that if she is feeling better later today, she can let the nursing staff know and they can call one of us to discharge her. She should be discharged w/ a steroid taper if her leg pain is relieved with the current methylprednisolone order. Postoperative Procedures: Procedures Operation Date: 03/07/24 07:45 Actual Procedure Side Surgeon p L5-S1 TLIF Stephy Lopez MD Postoperative day: 2 Quality VTE Deep Vein Thrombosis/Pulmonary Embolism Present on Admission: No
[2024-03-09] MEDS: methylPREDNISolone 4 MG TABLET 24 MG PO (08:39)
--- NOTE | 2024-03-09 08:56 | PT.IPTN ---
Current Diagnoses Spondylolisthesis, lumbosacral region (03/07/24) Spinal stenosis, lumbosacral region (03/07/24) Arthrodesis status (03/07/24) Surgery Performed Operation Date: 03/07/24 07:45 Actual Procedures p L5-S1 TLIF - Stephy Lopez MD Physical Therapy Treatment Note M2 PT-IP Current Condition Start: 03/07/24 14:02 Freq: NEEDED Status: Active Protocol: Document 03/08/24 10:00 AB (Rec: 03/08/24 12:46 AB [id number]) Physical Therapy Current Condition Current Condition Evaluation Date 03/08/24 Treatment Diagnosis s/p L4-S1 TLIF; difficulty in walking Onset Date 03/07/24 M3 PT-IP Subjective Start: 03/07/24 14:02 Freq: NEEDED Status: Active Protocol: Document 03/09/24 09:20 TS (Rec: 03/09/24 09:32 TS [id number]) Subjective Physical Therapy Visit Type Type Treatment Note Visit Start Time 08:56 Visit Stop Time 09:16 Number of SKILL TRAINING PROGRAM COORDINATOR Visits 1 Physical Therapy Visit Comments Patient Comments Pt found resting in bed, reports pain is 6/10, has had some dizziness when getting up , she is agreeable to PT. Therapy Pain Assessment Pain When Pain Assessed At Rest Pain Present Pain Present Pain Reported Location back Intensity 6 Scale Used Numeric (0 - 10) Description Acute,Radiating,Sharp Pain Behaviors Wincing Pain Management Techniques Apply Cold,Distraction, Modification of Treatment,Re- positioning,Timing of Activity with Medications M4 PT-IP Mobility and Gait Start: 03/07/24 14:02 Freq: NEEDED Status: Active Protocol: Document 03/09/24 09:20 TS (Rec: 03/09/24 09:32 TS [id number]) PT-Bed Mobility Assessment Rolling Type of Rolling Log Rolling Level of Assist Standby Assistance Supine to Sit Supine to Sit Contact Guard Assistance Sit to Supine Sit to Supine Minimal Assistance PT-Transfer Assessment Sit to and From Stand Sit to and from Stand Standby Assistance Equipment Transfer Assistive Device Gait Belt,Front Wheeled Walker Orthotic/Prosthetic Devices or Brace: No Comments Mobility Comments Pt recalled 3/3 spinal precautions prior to mobility. Logroll to R side SBA, pt required cues for sequencing. Supine to sit CGA for uprighting trunk. STS with FWW SBA, pt is slow to stand. She ambulated ~100' SBA in hallway with slow step thru gait, she reports some burning in R hip. Sit to supine into bed Zen for LE's. Pt was left in bed, all needs met. Gait Assessment Gait Gait Assistance Required: Standby Assistance Distance (Feet) 100 Able to Maintain Weight Bearing Status Yes During Gait Assistive Devices Assistive Device Gait Belt,Front Wheeled Walker Orthotic/Prosthetic Devices or Brace: No Gait Deviations General Gait Pattern Decreased Stride Length, Decreased Feet Clearance Factors Limiting Gait Function Factors Limiting Gait Function Decreased Activity Tolerance, Decreased Strength,Limited Range of Motion,Pain,Poor Balance,Poor Safety Awareness Comments Gait Comments See mobility comments Stair Climbing Assessment Comments Stair Climbing Comments no stairs PT-Balance Assessment Sitting Balance and Reactions Static Sitting Balance Ability Good Dynamic Sitting Balance Ability Good Standing Balance and Reactions Static Standing Balance Ability Fair Dynamic Standing Balance Ability Fair Device Used FWW M5 PT-IP Objective Assessments Start: 03/07/24 14:02 Freq: NEEDED Status: Active Protocol: Document 03/08/24 10:00 AB (Rec: 03/08/24 12:46 AB [id number]) Orientation Orientation/Cognition Level of Alertness Alert Orientation Name,Place,Situation Language Function Ability No Deficits Noted Safety Awareness Understands Safety Issues Memory Description No Deficits Noted Gross Range of Motion Lower Extremity ROM Assessment Within Functional Limits Strength Lower Extremity Strength Hip 4-/5 Knee 4-/5 Coordination Assessment Gross Coordination Gross Coordination WNL Sensation Assessment Sensation Gross Sensation WNL Muscle Tone Muscle Tone WNL Yes M6 PT-IP Treatment Start: 03/07/24 14:02 Freq: NEEDED Status: Active Protocol: Document 03/09/24 09:20 TS (Rec: 03/09/24 09:32 [id number]) Physical Therapy Treatment Education Education Provided Precautions,Weight Bearing Status,Post-Op Packet,Safety M7 PT-IP Assessment and Plan Start: 03/07/24 14:02 Freq: NEEDED Status: Active Protocol: Document 03/09/24 09:20 TS (Rec: 03/09/24 09:32 [id number]) PT Summary Assessment and Plan Potential Rehabilitation Potential Fair Summary Impairments Pain,ROM,Strength,Balance, Coordination,Sensation,Tone, Cognition,Bed Mobility, Transfers,Gait,Activity Tolerance Progress Towards Goals Progressing Toward Goals Assessment Summary Mindi is making good progress with her mobility. She demonstrates good recall of her spinal precautions, she recalled 3/3. She performs bed mobility CGA/Zen with some cues for sequencing. She progressed her gait to ~100' SBA with FWW. She continues to have burning pain in her hips R>L. PT is recommending home with assist and outpatient PT. Goals Bed Mobility Goal Independent Transfer Goal Independent,Front Wheeled Walker Gait Goal Independent,Front Wheel Walker Gait Distance 200 Days to Meet Goals 10 Frequency of Treatment Frequency Of Treatment Twice a Day Treatment Plan Physical Therapy Treatment Plan Bed Mobility Training,Transfer Training,Gait Training, Therapeutic Exercise,Balance Retraining,Post Op Education, Discharge Planning,Hot or Cold Pack,Neuromuscular Re-ed, Coordination Retraining,Manual Therapy Precautions Lumbar Precautions Log Roll,No Twisting,Limit Bending,Lifting Restriction of 10 lbs,Gait Belt above Incisional Area Recommendations To Nursing Amount of Assist Needed 1 Person Assist Discharge Recommendations PT Discharge Recommendations Home with Assistance, Outpatient PT Transportation Needs at Discharge Private Vehicle
[2024-03-09] MEDS: OXYCODONE IR 5 MG TABLET PO ×3 (09:07→15:13)
--- NOTE | 2024-03-09 09:16 | PT.IPTN ---
Current Diagnoses Spondylolisthesis, lumbosacral region (03/07/24) Spinal stenosis, lumbosacral region (03/07/24) Arthrodesis status (03/07/24) Surgery Performed Operation Date: 03/07/24 07:45 Actual Procedures p L5-S1 TLIF - Stephy Lopez MD Physical Therapy Treatment Note M2 PT-IP Current Condition Start: 03/07/24 14:02 Freq: NEEDED Status: Active Protocol: Document 03/08/24 10:00 AB (Rec: 03/08/24 12:46 AB [id number]) Physical Therapy Current Condition Current Condition Evaluation Date 03/08/24 Treatment Diagnosis s/p L4-S1 TLIF; difficulty in walking Onset Date 03/07/24 M3 PT-IP Subjective Start: 03/07/24 14:02 Freq: NEEDED Status: Active Protocol: Document 03/09/24 09:20 TS (Rec: 03/09/24 09:32 TS [id number]) Subjective Physical Therapy Visit Type Type Treatment Note Visit Start Time 08:56 Visit Stop Time 09:16 Number of FINISHED CLOTH CHECKER Visits 1 Physical Therapy Visit Comments Patient Comments Pt found resting in bed, reports pain is 6/10, has had some dizziness when getting up , she is agreeable to PT. Therapy Pain Assessment Pain When Pain Assessed At Rest Pain Present Pain Present Pain Reported Location back Intensity 6 Scale Used Numeric (0 - 10) Description Acute,Radiating,Sharp Pain Behaviors Wincing Pain Management Techniques Apply Cold,Distraction, Modification of Treatment,Re- positioning,Timing of Activity with Medications M4 PT-IP Mobility and Gait Start: 03/07/24 14:02 Freq: NEEDED Status: Active Protocol: Document 03/09/24 09:20 TS (Rec: 03/09/24 09:32 TS [id number]) PT-Bed Mobility Assessment Rolling Type of Rolling Log Rolling Level of Assist Standby Assistance Supine to Sit Supine to Sit Contact Guard Assistance Sit to Supine Sit to Supine Minimal Assistance PT-Transfer Assessment Sit to and From Stand Sit to and from Stand Standby Assistance Equipment Transfer Assistive Device Gait Belt,Front Wheeled Walker Orthotic/Prosthetic Devices or Brace: No Comments Mobility Comments Pt recalled 3/3 spinal precautions prior to mobility. Logroll to R side SBA, pt required cues for sequencing. Supine to sit CGA for uprighting trunk. STS with FWW SBA, pt is slow to stand. She ambulated ~100' SBA in hallway with slow step thru gait, she reports some burning in R hip. Sit to supine into bed CGA. Pt was left in bed, all needs met. Gait Assessment Gait Gait Assistance Required: Standby Assistance Distance (Feet) 100 Able to Maintain Weight Bearing Status Yes During Gait Assistive Devices Assistive Device Gait Belt,Front Wheeled Walker Orthotic/Prosthetic Devices or Brace: No Gait Deviations General Gait Pattern Decreased Stride Length, Decreased Feet Clearance Factors Limiting Gait Function Factors Limiting Gait Function Decreased Activity Tolerance, Decreased Strength,Limited Range of Motion,Pain,Poor Balance,Poor Safety Awareness Comments Gait Comments See mobility comments Stair Climbing Assessment Comments Stair Climbing Comments no stairs PT-Balance Assessment Sitting Balance and Reactions Static Sitting Balance Ability Good Dynamic Sitting Balance Ability Good Standing Balance and Reactions Static Standing Balance Ability Fair Dynamic Standing Balance Ability Fair Device Used FWW M5 PT-IP Objective Assessments Start: 03/07/24 14:02 Freq: NEEDED Status: Active Protocol: Document 03/08/24 10:00 AB (Rec: 03/08/24 12:46 AB [id number]) Orientation Orientation/Cognition Level of Alertness Alert Orientation Name,Place,Situation Language Function Ability No Deficits Noted Safety Awareness Understands Safety Issues Memory Description No Deficits Noted Gross Range of Motion Lower Extremity ROM Assessment Within Functional Limits Strength Lower Extremity Strength Hip 4-/5 Knee 4-/5 Coordination Assessment Gross Coordination Gross Coordination WNL Sensation Assessment Sensation Gross Sensation WNL Muscle Tone Muscle Tone WNL Yes M6 PT-IP Treatment Start: 03/07/24 14:02 Freq: NEEDED Status: Active Protocol: Document 03/09/24 09:20 TS (Rec: 03/09/24 09:32 TS [id number]) Physical Therapy Treatment Education Education Provided Precautions,Weight Bearing Status,Post-Op Packet,Safety M7 PT-IP Assessment and Plan Start: 03/07/24 14:02 Freq: NEEDED Status: Active Protocol: Document 03/09/24 09:20 TS (Rec: 03/09/24 09:32 TS [id number]) PT Summary Assessment and Plan Potential Rehabilitation Potential Fair Summary Impairments Pain,ROM,Strength,Balance, Coordination,Sensation,Tone, Cognition,Bed Mobility, Transfers,Gait,Activity Tolerance Progress Towards Goals Progressing Toward Goals Assessment Summary Mindi is making good progress with her mobility. She demonstrates good recall of her spinal precautions, she recalled 3/3. She performs bed mobility CGA/Zen with some cues for sequencing. She progressed her gait to ~100' SBA with FWW. She continues to have burning pain in her hips R>L. Spouse was instructed in bed mobility, gait training and precautions. PT is recommending home with assist and outpatient PT. Goals Bed Mobility Goal Independent Transfer Goal Independent,Front Wheeled Walker Gait Goal Independent,Front Wheel Walker Gait Distance 200 Days to Meet Goals 10 Frequency of Treatment Frequency Of Treatment Twice a Day Treatment Plan Physical Therapy Treatment Plan Bed Mobility Training,Transfer Training,Gait Training, Therapeutic Exercise,Balance Retraining,Post Op Education, Discharge Planning,Hot or Cold Pack,Neuromuscular Re-ed, Coordination Retraining,Manual Therapy Precautions Lumbar Precautions Log Roll,No Twisting,Limit Bending,Lifting Restriction of 10 lbs,Gait Belt above Incisional Area Recommendations To Nursing Amount of Assist Needed 1 Person Assist Discharge Recommendations PT Discharge Recommendations Home with Assistance, Outpatient PT Transportation Needs at Discharge Private Vehicle
--- NOTE | 2024-03-09 09:16 | PT.IPTN ---
Current Diagnoses Spondylolisthesis, lumbosacral region (03/07/24) Spinal stenosis, lumbosacral region (03/07/24) Arthrodesis status (03/07/24) Surgery Performed Operation Date: 03/07/24 07:45 Actual Procedures p L5-S1 TLIF - Stephy Lopez MD Physical Therapy Treatment Note M2 PT-IP Current Condition Start: 03/07/24 14:02 Freq: NEEDED Status: Active Protocol: Document 03/08/24 10:00 AB (Rec: 03/08/24 12:46 AB [id number]) Physical Therapy Current Condition Current Condition Evaluation Date 03/08/24 Treatment Diagnosis s/p L4-S1 TLIF; difficulty in walking Onset Date 03/07/24 M3 PT-IP Subjective Start: 03/07/24 14:02 Freq: NEEDED Status: Active Protocol: Document 03/09/24 09:20 TS (Rec: 03/09/24 09:32 TS [id number]) Subjective Physical Therapy Visit Type Type Treatment Note Visit Start Time 08:56 Visit Stop Time 09:16 Number of SUPERVISOR HOUSECLEANER Visits 1 Physical Therapy Visit Comments Patient Comments Pt found resting in bed, reports pain is 6/10, has had some dizziness when getting up , she is agreeable to PT. Therapy Pain Assessment Pain When Pain Assessed At Rest Pain Present Pain Present Pain Reported Location back Intensity 6 Scale Used Numeric (0 - 10) Description Acute,Radiating,Sharp Pain Behaviors Wincing Pain Management Techniques Apply Cold,Distraction, Modification of Treatment,Re- positioning,Timing of Activity with Medications M4 PT-IP Mobility and Gait Start: 03/07/24 14:02 Freq: NEEDED Status: Active Protocol: Document 03/09/24 09:20 TS (Rec: 03/09/24 09:32 TS [id number]) PT-Bed Mobility Assessment Rolling Type of Rolling Log Rolling Level of Assist Standby Assistance Supine to Sit Supine to Sit Contact Guard Assistance Sit to Supine Sit to Supine Contact Guard Assistance PT-Transfer Assessment Sit to and From Stand Sit to and from Stand Standby Assistance Equipment Transfer Assistive Device Gait Belt,Front Wheeled Walker Orthotic/Prosthetic Devices or Brace: No Comments Mobility Comments Pt recalled 3/3 spinal precautions prior to mobility. Logroll to R side SBA, pt required cues for sequencing. Supine to sit CGA for uprighting trunk. STS with FWW SBA, pt is slow to stand. She ambulated ~100' SBA in hallway with slow step thru gait, she reports some burning in R hip. Sit to supine into bed CGA with cues for logroll. Pt was left in bed, all needs met. Gait Assessment Gait Gait Assistance Required: Standby Assistance Distance (Feet) 100 Able to Maintain Weight Bearing Status Yes During Gait Assistive Devices Assistive Device Gait Belt,Front Wheeled Walker Orthotic/Prosthetic Devices or Brace: No Gait Deviations General Gait Pattern Decreased Stride Length, Decreased Feet Clearance Factors Limiting Gait Function Factors Limiting Gait Function Decreased Activity Tolerance, Decreased Strength,Limited Range of Motion,Pain,Poor Balance,Poor Safety Awareness Comments Gait Comments See mobility comments Stair Climbing Assessment Comments Stair Climbing Comments no stairs PT-Balance Assessment Sitting Balance and Reactions Static Sitting Balance Ability Good Dynamic Sitting Balance Ability Good Standing Balance and Reactions Static Standing Balance Ability Fair Dynamic Standing Balance Ability Fair Device Used FWW M5 PT-IP Objective Assessments Start: 03/07/24 14:02 Freq: NEEDED Status: Active Protocol: Document 03/08/24 10:00 AB (Rec: 03/08/24 12:46 AB [id number]) Orientation Orientation/Cognition Level of Alertness Alert Orientation Name,Place,Situation Language Function Ability No Deficits Noted Safety Awareness Understands Safety Issues Memory Description No Deficits Noted Gross Range of Motion Lower Extremity ROM Assessment Within Functional Limits Strength Lower Extremity Strength Hip 4-/5 Knee 4-/5 Coordination Assessment Gross Coordination Gross Coordination WNL Sensation Assessment Sensation Gross Sensation WNL Muscle Tone Muscle Tone WNL Yes M6 PT-IP Treatment Start: 03/07/24 14:02 Freq: NEEDED Status: Active Protocol: Document 03/09/24 09:20 TS (Rec: 03/09/24 09:32 [id number]) Physical Therapy Treatment Education Education Provided Precautions,Weight Bearing Status,Post-Op Packet,Safety M7 PT-IP Assessment and Plan Start: 03/07/24 14:02 Freq: NEEDED Status: Active Protocol: Document 03/09/24 09:20 TS (Rec: 03/09/24 09:32 [id number]) PT Summary Assessment and Plan Potential Rehabilitation Potential Fair Summary Impairments Pain,ROM,Strength,Balance, Coordination,Sensation,Tone, Cognition,Bed Mobility, Transfers,Gait,Activity Tolerance Progress Towards Goals Progressing Toward Goals Assessment Summary Mindi is making good progress with her mobility. She demonstrates good recall of her spinal precautions, she recalled 3/3. She performs bed mobility SBA/CGA with some cues for sequencing. She progressed her gait to ~100' SBA with FWW. She continues to have burning pain in her hips R>L. Spouse was instructed in bed mobility, gait training and precautions. PT is recommending home with assist and outpatient PT. Goals Bed Mobility Goal Independent Transfer Goal Independent,Front Wheeled Walker Gait Goal Independent,Front Wheel Walker Gait Distance 200 Days to Meet Goals 10 Frequency of Treatment Frequency Of Treatment Twice a Day Treatment Plan Physical Therapy Treatment Plan Bed Mobility Training,Transfer Training,Gait Training, Therapeutic Exercise,Balance Retraining,Post Op Education, Discharge Planning,Hot or Cold Pack,Neuromuscular Re-ed, Coordination Retraining,Manual Therapy Precautions Lumbar Precautions Log Roll,No Twisting,Limit Bending,Lifting Restriction of 10 lbs,Gait Belt above Incisional Area Recommendations To Nursing Amount of Assist Needed 1 Person Assist Discharge Recommendations PT Discharge Recommendations Home with Assistance, Outpatient PT Transportation Needs at Discharge Private Vehicle
--- NOTE | 2024-03-09 11:05 | CM.DPC ---
[facility]. Reviewed EMR and team rounds for status updates. Per Hospitalist, pt is requiring acute pain management postoperatively. They have started oral steroids and increased her pain meds, plan is d/c home tomorrow pending pain improvement.
[2024-03-09] MEDS: BACLOFEN 10 MG TABLET 20 MG PO (12:11)
[2024-03-09 13:23] VITALS: BP 135/79; PULSE 103; RESP 18; TEMP 36.1; O2SAT 98
--- NOTE | 2024-03-09 13:38 | PM.DS.1 ---
History of Present Illness History of Present Illness Date Patient Seen: 03/09/24 Time Patient Seen: 13:39 Chief complaint: Back pain Narrative: Operative Date/Time/Diagnoses Date of procedure: 03/07/24 Time of procedure: 07:40 Pre-op diagnosis: 1. L5-S1 spondylolisthesis 2. L5-S1 bilateral foramen stenosis with radiculopathy Post-op diagnosis: same Procedure & Clinicians Procedure: 1. L5-S1 Postero-lateral and posterior interbody fusion 2. L5-S1 interbody cage placement. 3. L5-S1 decompressive laminectomy with bilateral facetecomies 4. L5-S1 Posterior non-segmental instrumentation 5. [place] of bone marrow from iliac crest 6. Utilization of microsurgical technique and operating microscope Same procedure as scheduled: Yes Indications: Patient has been having chronic back pain and worsening lumbar radiculopathy. Patient was found to have L5-S1 severe degenerative disc disease with bilateral foraminal stenosis and retrolisthesis correlating with her symptoms. Patient failed multiple conservative management with worsening pain weakness and numbness in her lower extremity. Patient has been having difficulty performing activity of daily living. After discussing risks benefits of treatment options, patient elected proceed with surgery. Surgeon: Stephy Lopez Transfer Controller: Diane Hickey Click Yes if Unassisted: No Anesthesia Type: General Operative Notes Closure Type: primary Specimen(s): none sent Prosthetic devices, grafts, tissues, transplants, or devices: Globus revolve screws, Rise cage Estimated Blood Loss (mL): 50 Blood products transfused: none Discharge Providers Provider Date of admission: 03/07/24 06:12 Discharge Date: 03/09/24 Primary care physician: Alisha Colon MD Consults: 03/07/24 12:10 Consult to Occupational Therapy Evaluate & Treat Comment: Physician Instructions: Evaluate and treat Consult to Physical Therapy Evaluate & Treat Comment: Physician Instructions: Evaluate and Treat Discharge provider: Diane iHckey PA-C Summary Hospital Course Discharge Diagnosis: L5-S1 spondylolisthesis, L5-S1 bilateral foramen stenosis with radiculopathy; s/p L5-S1 TLIF Hospital Course: Pts hospital course was remarkable only for pain after surgery. She was seen on the morning of POD# 2, and some medication changes were initiated. I spoke to her by phone later in the day, and though she continued to c/o pain, she wanted to go home. She was evaluated by PT, who felt she was safe for d/c home with family. Exam Vital Signs (past 8 hours): - 03/09/24 08:00 03/09/24 13:23 Temperature 99.7 F H 97.0 F L Pulse Rate 95 H 103 H Respiratory Rate 16 18 Blood Pressure 121/81 135/79 Pulse Oximetry 96 98 Oxygen Delivery Method Nasal Cannula Oxygen Flow Rate 0 Narrative Exam Narrative: See progress note from earlier today. [facility] Medical History History of COVID-19 (01/2022) Anxiety GERD (gastroesophageal reflux disease) HLD (hyperlipidemia) Hx of migraines Spondylolisthesis Foraminal stenosis of lumbosacral region Surgical History History of colonoscopy [place] teeth removed Hx of dilation and curettage (1995) Social History household members: spouse Smoking Status: Former smoker alcohol intake: current Discharge Assessment & Plan Assessment and Plan Assessment: L5-S1 spondylolisthesis, L5-S1 bilateral foramen stenosis with radiculopathy; s/p L5-S1 TLIF Plan of Treatment: Discharge home, baclofen increased to 20mg q 6hr from 10mg q 8hr, medrol akash, f/u in office in 2 weeks as scheduled. Discharge Plan Discharge Plan Patient Disposition: Home Discharge orders & Medications Prescriptions: New acetaminophen 325 mg Tablet 650 mg PO Q6H PRN (Reason: Fever/Mild Pain (1-3)) Qty: 60 0RF oxycodone 5 mg Tablet 5 mg PO Q3H PRN (Reason: Pain, Moderate (4-6)) Qty: 40 0RF methylprednisolone [Methylpred DP] 4 mg tablets,dose pack See Rx Instructions .ROUTE .COMPLEX Qty: 21 0RF Rx Instructions: orally per package directions baclofen 20 mg tablet 20 mg PO QID PRN (Reason: muscle spasm) Qty: 90 0RF Continued trazodone 50 mg Tablet 150 - 200 mg PO BEDTIME baclofen 10 mg Tablet 10 mg PO Q8H PRN (Reason: Muscle Spasm) ondansetron 4 mg Tablet,Disintegrating 4 mg PO Q8H PRN (Reason: Nausea) Femring 0.1 mg/24 hr Ring 1 vag ring VAGINAL [id number] rosuvastatin 10 mg Tablet 10 mg PO DAILY [id number] [Fioricet] 50-300-40 mg Capsule 1 - 2 cap PO DAILY PRN (Reason: Migraine Headache) Nurtec ODT 75 mg Tablet,Disintegrating 75 mg PO Q OTHER DAY PRN (Reason: Migraine Headache) Ozempic 1 mg/dose (4 mg/3 mL) Pen Injector 1 mg SUBCUT QWEEK Patient Comments: Every Thursday alprazolam 0.25 mg tablet 0.25 mg PO BID No Action progesterone micronized 100 mg capsule 100 mg PO ONCE PM esomeprazole magnesium 20 mg capsule,delayed release(DR/EC) 20 mg PO DAILY docusate sodium 100 mg Capsule 100 mg PO BID PRN (Reason: Constipation) Follow up/Referrals: Stephy Lopez MD [Physician] - 03/24/24 2:00 pm (Follow up w/ Diane Hickey PA-C, at [facility] office in [place]. This is a change from your original appointment) Alisha Colon MD [Primary Care Provider] - Diet/Activity/Treatments Diet: Diet as Tolerated Activity: No deep bending or twisting at the waist. No lifting more than 10 pounds. Skin/Wound/Dressing Care Report to your healthcare provider any signs of infection, such as:: chills, fever, night sweats, unusual drainage and unusual redness Dressing: May shower. Keep dressing as dry as possible. If dressing becomes wet or dirty, remove and replace with clean, dry gauze. No bathing or otherwise soaking incisions. Do not apply any creams, lotions, or ointments to incisions. Visit Report/Discharge Packet Instructions: DI for Prescription Opioid Use, DI for Transforaminal Lumbar Interbody Fusion Stand Alone Forms: Congestive Heart Failure, Patient Portal/API, Stroke Signs & Symptoms, Surgery Discharge Discharge Data Primary Care Provider: Alisha Colon Quality VTE Deep Vein Thrombosis/Pulmonary Embolism Present on Admission: No
--- NOTE | 2024-03-09 14:30 | OT.IP.TRT ---
Current Diagnoses Spondylolisthesis, lumbosacral region (03/07/24) Spinal stenosis, lumbosacral region (03/07/24) Arthrodesis status (03/07/24) Surgery Performed Operation Date: 03/07/24 07:45 Actual Procedures p L5-S1 TLIF - Stephy Lopez MD Occupational Therapy Treatment Note M2 OT-IP Current Condition Start: 03/08/24 13:14 Freq: Status: Active Protocol: Document 03/08/24 13:14 [facility] (Rec: 03/08/24 13:31 [facility] [id number]) Occupational Therapy Current Condition Current Condition Evaluation Date 03/08/24 Treatment Diagnosis S/P L5-S1 TLIF Diagnosis Onset Date 03/07/24 Post Operative Precautions Lumbar Precautions Log Roll,No Twisting,Limit Bending,Lifting Restriction of 10 lbs,Gait Belt above Incisional Area M3 OT- IP Subjective and Pain Start: 03/08/24 13:14 Freq: Status: Active Protocol: Document 03/09/24 14:19 [facility] (Rec: 03/09/24 14:30 [facility] [id number]) OT- Subjective Occupational Therapy Visit Type Type Treatment Note Visit Start Time 13:35 Visit Stop Time 14:10 Occupational Therapy Visit Comments Patient Comments Pt agreed to practice LB AE for dressing and to have caregiver training with her spouse. Patient/Caregiver Goals To go home. OT Pain Assessment Pain When Pain Assessed At Rest Pain Present Pain Present Pain Reported M4 OT- IP ADL's Start: 03/08/24 13:14 Freq: Status: Active Protocol: Document 03/09/24 14:19 [facility] (Rec: 03/09/24 14:30 [facility] [id number]) OT ADL-Dressing General Eval Lower Body Dressing Ability Standby Assistance Areas Needing Assistance Pants/Shorts,Socks,Shoes Assistive Devices Dressing Assistive Devices Insulator Helper,Sock Aid Comments OT Dressing Comments OT educated pt on research instructor and sock aid. Pt sits EOB and doffs socks with research instructor with vcs only. Pt dons socks with sock aid following demonstration. Pt doffs pajama pants using research instructor and min vcs. Pt dons pajama pants using research instructor and min vcs. M5 OT- IP IADL's Start: 03/08/24 13:14 Freq: Status: Active Protocol: Document 03/08/24 13:14 [facility] (Rec: 03/08/24 13:31 [facility] [id number]) OT-Instrumental Activities of Daily Living Home Safety Awareness Awareness of Need for Assistance at Home Good Awareness Ability to Problem Solve Emergency Able to Problem Solve Situations Home Safety Comments Pt's plans on stayig home to asisst her. M7 OT- IP Mobility and Balance Start: 03/08/24 13:14 Freq: Status: Active Protocol: Document 03/09/24 14:19 [facility] (Rec: 03/09/24 14:30 [facility] [id number]) OT- Bed Mobility Assessment Supine to Sit Supine to Sit Assist Contact Guard Assistance, Bedrails Sit to Supine Sit to Supine Assist Contact Guard Assistance, Bedrails Scooting Scooting to Edge of Bed Standby Assistance OT-Transfer Assessment Sit to and From Stand Sit to and from Stand Contact Guard Assistance Transfers Transfer Ability Standby Assistance,Contact Guard Assistance Technique Transfer Destination Bed Comments Mobility Comments OT educated pt spouse on how to assist with sup<>sit and how to assist with log rolling . pt and spouse verbalize understanding. Once EOB, pt requires vcs to push up from stable surface vs the walker. Pt amb throughout room with S . Pt requires vcs to reach back for bed when returning to sitting as well. OT- Balance Assessment Sitting Balance and Reactions Static Sitting Balance Ability Good Dynamic Sitting Balance Ability Good Standing Balance and Reactions Static Standing Balance Ability Fair Dynamic Standing Balance Ability Fair M8 OT- IP Objective Assessments Start: 03/08/24 13:14 Freq: Status: Active Protocol: Document 03/08/24 13:14 [facility] (Rec: 03/08/24 13:31 [facility] [id number]) OT Gross Range of Motion Upper Extremity Range of Motion Assessment Within Functional Limits OT Strength Comments Strength Comments WFL for needs. M9 OT- IP Assessment and Plan Start: 03/08/24 13:14 Freq: Status: Active Protocol: Document 03/09/24 14:19 [facility] (Rec: 03/09/24 14:30 [facility] [id number]) OT Summary Assessment and Plan Potential Rehabilitation Potential Excellent Analytic Complexity at Evaluation Low Summary OT Impairments Pain,Strength,Balance, Functional Mobility,Dressing, Toileting,Bathing,Toilet Transfers,Shower Transfers Progress Towards Goals Progressing Toward Goals,Slow Progress due to Pain Assessment Summary Pt continues to have limiting pain. Pt was agreeable to participating in therapy. Both pt and spouse asked many questions about household environment and following spinal precautions. OT provided necessary education. Pt demonstrated good use of AE with min vcs to use correctly. OT discussed how these will help to maintain necessary spinal precautions as well. Pt continues to benefit from skilled OT services. Cont per established POC. Goals Self-Feeding Goal Independent Grooming Goal Independent Dressing Goal Minimal Assistance Toileting Goal Independent Bathing Goal Minimal Assistance Toilet Transfer Goal Independent Shower Transfer Goal Standby Assistance Days to Meet Goals 5 Frequency of Treatment Frequency Of Treatment Once a Day Other frequency 5x/week Treatment Plan OT Treatment Plan ADL Training,Functional Mobility,Patient/Family Education,Discharge Planning Discharge Recommendations OT Discharge Recommendations Home with Assistance Home Equipment Needs BSC, bedrail Transportation Needs at Discharge Private Vehicle
== END 2024-03-09 15:48 | disposition home or self-care (01) | DRG 455 ==
PROVIDERS: Admitting Provider Orthopaedic Surgery Orthopaedic Surgery of the Spine; Family Provider Family Medicine; PCP Family Medicine; Referring Provider Orthopaedic Surgery Orthopaedic Surgery of the Spine; Visit Provider Orthopaedic Surgery Orthopaedic Surgery of the Spine
PROC: 0SG30AJ Fusion of Lumbosacral Joint with Interbody Fusion Device, Posterior Approach, Anterior Column, Open Approach (ICD-10-PCS; principal; 2024-03-07 07:45)
DX: M43.17 Spondylolisthesis, lumbosacral region (principal); M48.07 Spinal stenosis, lumbosacral region; M54.17 Radiculopathy, lumbosacral region; G89.18 Other acute postprocedural pain; E78.5 Hyperlipidemia, unspecified; F41.9 Anxiety disorder, unspecified; Z87.891 Personal history of nicotine dependence
CPT/HCPCS: 72100; 76000; 81025; 97162; 97165; 97530; 97535; C1713; C9290; J0171; J0690; J1100; J1170; J2060; J2175; J2405; J2704; J3010; J3410